=== PATIENT | male | born 1970 | race Caucasian/White ===

== ENCOUNTER 2024-10-25 14:17 | Emergency (ER) | payer MEDICAID, SELFPAY ==
[2024-10-25 14:18] VITALS: BP 120/90; PULSE 69; RESP 17; TEMP 36.6; O2SAT 98; BMI 29.7
--- NOTE | 2024-10-25 14:29 | RAD_ITS ---
EXAM: XR Left Shoulder Complete, 2 or More Views CLINICAL INDICATION: FALL TECHNIQUE: Two or more views of the left shoulder. COMPARISON: No relevant prior studies available. FINDINGS: BONES/JOINTS: Mild degenerative changes of the acromioclavicular and glenohumeral joints. No acute fracture. No dislocation. SOFT TISSUES: Soft tissue swelling. RAD/Shoulder min 2 Views IMPRESSION: Degenerative changes as above. Reading Location: [facility]
== END 2024-10-25 17:27 | disposition left against medical advice (07) ==
LOC: ED 17:29
DX: Z53.21 Procedure and treatment not carried out due to patient leaving prior to being seen by health care provider (principal); M79.89 Other specified soft tissue disorders; W19.XXXA Unspecified fall, initial encounter
CPT/HCPCS: 73030

== ENCOUNTER 2025-01-30 13:25 | Day surgery (SDC) | payer MEDICAID, SELFPAY ==
[2025-01-30] VITALS (9 sets, daily range): BP systolic 102–134; BP diastolic 72–90; PULSE 58–86; RESP 12–16; TEMP 2.2–36.4; O2SAT 93–97; BMI 27.1
--- NOTE | 2025-01-30 13:41 | EKG12_ITS ---
Test Reason : PRE-OP Blood Pressure : */* mmHG Vent. Rate : 61 BPM Atrial Rate : 61 BPM P-R Int : 132 ms QRS Dur : 86 ms QT Int : 404 ms P-R-T Axes : 10 15 32 degrees QTcB Int : 406 ms Normal sinus rhythm Normal ECG When compared with ECG of 31-Aug-2002 20:21, Questionable change in QRS axis Confirmed by BERT MON, REBECCA ([id number]), development editor ASHLEIGH FLETCHER ([id number]) on 02/04/2025 6:39:43 AM Referred By: Balwinder Segundo Confirmed By: REBECCA NOEL MD
--- NOTE | 2025-01-30 14:13 | PCM.PRE.AN2 ---
ASA Classification* ASA Classification ASA Classification: 2 Assessment & Plan Anesthesia* Anesthesia Assessment Anesthesia Assessment: Discussed sedation and/or anesthesia options, risks, benefits, and alternatives with patient/parents/legal guardian/POA. Questions invited. The patient/parents/legal guardian/POA seems to understand and agrees to proceed with anesthesia plan. Reviewed the physical assessment, medical history, allergy history and patient home medications list prior to surgery/procedure/anesthetic and documented any changes. Performed airway and anesthesia risk assessments. Anesthesia Type Anesthesia Type: General and Block History Source History Obtained from:: Patient and Chart Anesthesia Focused Assessment* Temperature: 36 F Pulse Rate: 58 Blood Pressure: 109/74 Respiratory Rate: 12 Pulse Ox: 97 Oxygen Delivery Method: Room Air Airway Assessment Mouth opens: >3 cm Mallampati Score: II Neck Range of motion (ROM): Full ROM Labs Anesthesia Preop lab: CBC WBC, (4.4-11.0) 3.1 K/mm3 L Today, 14:16 RBC, (4.6-6.2) 2.56 M/mm3 L Today, 14:16 Hgb, (13.0-16.5) 7.6 g/dL L Today, 14:16 Hct, (40-54) 23.1 % L Today, 14:16 Plt Count, (150-450) 113 K/mm3 L Today, 14:16 CHEMISTRY COAG Pre-Assessment Diagnosis/Proposed Procedure Planned Operative Procedure(s): LEFT SHOULDER ARTHROSCOPY RTC REPAIR SUBCROMIAL DECOMPRESSION ALLOGRAFT TISSUE Anesthesia History Anesthesia History - refuse laborer: Anesthesia History - refuse laborer Hx Hospitalization Yes: 10/2024 FX RIBS 01/16/25 14:18 Any Problems With Anesthesia No 01/16/25 14:18 Cholinesterase deficiency No 01/16/25 14:18 You/Your Family Experience No 01/16/25 14:18 fever (hyperthermia) with Relationship Recent Exposure to Contagious Disease Does patient have nerve No 01/16/25 14:18 stimulator Patient instructed to have device shut off --Does patient have Pacemaker or ICD? When Was Last Pacemaker Check QUESTION #4 FULL TEXT: You/Your Family Experience fever (hyperthermia) with Anesthesia Last Oral Intake Last Oral intake: Last Oral Intake NPO since Meds taken in AM with sips of water? Meds patient instructed to take am of surgery PONV PONV - refuse laborer: PONV - refuse laborer Female No 01/16/25 14:18 HX of Motion Sickness No 01/16/25 14:18 HX of N/V After Surgery No 01/16/25 14:18 Non-Smoker No 01/16/25 14:18 Duration of Surgery greater Yes 01/16/25 14:18 than 60 minutes Number of Risk Factors 1 01/16/25 14:18 PONV Score Low Risk 01/16/25 14:18 Height & Weight Height & Weight: Anesthesia: Height & Weight Height 5 ft 8 in 12/20/24 14:56 Respiratory Assessment Respiratory Assessment - refuse laborer: Respiratory Tract Infection Hx - refuse laborer Hx Respiratory Tract Infection No 01/16/25 14:18 STOP Sleep Apnea STOP Sleep Apnea - refuse laborer: STOP Sleep Apnea - refuse laborer Hx Hypertension No 01/16/25 14:18 Hx Sleep Apnea No 01/16/25 14:18 CPAP BIPAP Do you snore loudly (louder No 01/16/25 14:18 than talking or can be heard Do you often feel tired/ Yes 01/16/25 14:18 fatigued/ sleepy during daytime? Has anyone observed you stop No 01/16/25 14:18 breathing during sleep? STOP Results Negative 01/16/25 14:18 QUESTION #5 FULL TEXT : Do you snore loudly (louder than talking or can be heard through closed doors)? Tobacco Use History Tobacco Use History - refuse laborer: Tobacco Use History - refuse laborer Tobacco Use Smoking Status Current every day smoker 01/16/25 14:18 Hx Tobacco Use Yes 01/16/25 14:18 Years Smoking Packs Smoked per Day Smoking Cessation Date was within the last 15 years Hx Smoking Cessation Date Hx Smoking Cessation Counseling Hematologic Medial History Hematologic Hx - refuse laborer: Hematologic Medical Hx - buckle wire inserter Hx of Blood Transfusion No 01/16/25 14:18 Hx of Transfusion in last 3 No 01/16/25 14:18 Months Date of Last Transfusion (if within last 3 months) Ever experience any problems No 01/16/25 14:18 with transfusion(s)? Specify any problems Hx of Preganancy in last 3 N/A 01/16/25 14:18 Months Nurse Filling Out Transfusion DSCHRIBER 01/16/25 14:18 & Questions: Date: 01/16/25 01/16/25 14:18 Time: 14:20 01/16/25 14:18 Patient unable to answer at this time (ie. confused, unrespo /Reproduction History /Reproductive History - refuse laborer: /Reproductive Hx- refuse laborer Hx Now No 01/16/25 14:18 Gestational Age (in weeks): EDC: Hx Hx Para Hx Section SAB No 01/16/25 14:18 [facility] Medical History Wears glasses Anxiety Marijuana use Alcohol use History of steroid therapy High cholesterol Back pain Injury of head and neck Migraine headache History of diverticulitis Heartburn Smoker History of pain when walking Left rotator cuff tear Depression Left shoulder pain Home Medications ?Medication ?Instructions ?Recorded ?Last Taken ?Type atorvastatin 40 mg tablet 40 mg PO QDAY 12/20/24 01/30/25 History bupropion HCl 300 mg 24 hr tablet, 300 mg PO QAM 12/20/24 01/30/25 History extended release escitalopram oxalate 20 mg tablet 20 mg PO QDAY 12/20/24 01/30/25 History ibuprofen 600 mg tablet 600 mg PO TID PRN pain 12/20/24 01/30/25 History methocarbamol 500 mg tablet 750 mg PO Q4 12/20/24 01/30/25 History multivitamin-ferrous 1 tab PO QDAY 12/20/24 01/30/25 History fumarate-folic acid 18 mg-400 mcg tablet (Certavite-Antioxidant) prazosin 1 mg capsule 3 mg PO QHS 12/20/24 01/27/25 History sennosides 8.6 mg-docusate sodium 1 tab-cap PO PRN PRN constipation 12/20/24 Unknown History 50 mg tablet (Stool Softener-Laxative) rizatriptan 5 mg tablet 5 mg PO Q2H PRN migraine headache 01/16/25 Unknown History tramadol 50 mg tablet 100 mg PO 4X/DAY 01/16/25 Unknown History oxycodone 5 mg tablet 5 mg PO Q6H PRN PRN pain 01/30/25 01/29/25 History Allergy/AdvReac Type Severity Reaction Status Date / Time acetaminophen Allergy Severe Shakes Verified 01/30/25 14:25 Environmental Allergies: Allergy Severe Stuffy nose Verified 01/30/25 14:25 Uncoded (seasonal) Surgical History Hx of lymph node excision Hx of shoulder surgery History of lumbar spinal fusion Social History Smoking Status: Current every day smoker tobacco type: cigarettes alcohol intake: current alcohol intake frequency: holidays/special occasions only Addt'l Information Additional Findings: > 4 MET Review of Systems (Anesthesia) ROS Narrative System reviewed and no additional complaints, except as documented. Physical Exam Const alert and oriented x3 Neck full ROM Resp normal respiratory effort, normal air movement and clear to auscultation bilaterally Neuro oriented x3 and moves all extremities
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
[2025-01-30] MEDS: Lactated Ringers 1,000 ML 15 ML IV (14:21)
[2025-01-30 14:34] LABS: Hematocrit 23.1 % (40-54); Hemoglobin 7.6 g/dL (13.0-16.5); Mean Corp Hgb Conc 32.9 g/dL (32-36); Mean Corpuscular Volume 90.2 fL (80-94); Mean Platelet Vol. 10.1 fl (6.2-12.0); Platelet Count 113 K/mm3 (150-450); RBC Distribution Width CV 12.5 % (11.6-14.6); RBC Distribution Width SD 41.1 fl (35.1-43.9); Red Blood Count 2.56 M/mm3 (4.6-6.2); White Blood Count 3.1 K/mm3 (4.4-11.0)
[2025-01-30] MEDS: Midazolam 2 MG/2 ML Syringe IV (14:41)
[2025-01-30] MEDS: Cefazolin 1 GM/5 ML Vial 2 GM IV (15:05)
[2025-01-30] MEDS: Lidocaine 1% (5 ml sdv) 5 ML Vial 8 ML IV (15:10)
[2025-01-30] MEDS: Epinephrine (1 mg/ml) 1 MG/ML VIAL (15:29)
--- NOTE | 2025-01-30 17:29 | DCINST_ITS ---
Discharge Instructions Diet Discharge Diet: No restrictions Activity Discharge Activity: May Shower Lifting Restrictions: no lifting over one pound, pendulums and elbow rom 4x/day Additional Activity Instructions:: ok to remove sling at rest Dressing / Incision Call your doctor if your incision/area has: Continuous Slow Oozing, Sudden Increased Bleeding, Increased Pain/ Swelling, Increased Redness, Foul Smelling Discharge and Swelling at the incision site Call your doctor if you observe: Fever of 101 or Higher, Coldness, Increased Pain and Numbness or Tingling Change Dressing in: leave in place till F/U Cleanse incision/area with: Do not get Incision Wet Follow Up Care Please Follow Up With: Balwinder Segundo MD When: within 2 weeks Test Results: Test results from this visit will be discussed in further detail at your follow- up appointment, if applicable. Discharge Plan Admission Attending Provider: Balwinder Segundo Primary Care Provider: JONNA PURI Instructions Patient Instructions: After Shoulder Arthroscopy Print Language: Marshallese Discharge Orders/Prescriptions Prescriptions: New oxycodone 5 mg capsule 5 mg PO Q4H MDD 6 PRN (Reason: pain) 5 Days Qty: 30 0RF No Action ibuprofen 600 mg tablet 600 mg PO TID PRN (Reason: pain) bupropion HCl 300 mg tablet extended release 24 hr 300 mg PO QAM escitalopram oxalate 20 mg tablet 20 mg PO QDAY Certavite-Antioxidant 18-400 mg-mcg tablet 1 tab PO QDAY sennosides-docusate sodium [Stool Softener-Laxative] 8.6-50 mg tablet 1 tab-cap PO PRN PRN (Reason: constipation) methocarbamol 500 mg tablet 750 mg PO Q4 atorvastatin 40 mg tablet 40 mg PO QDAY prazosin 1 mg capsule 3 mg PO QHS tramadol 50 mg tablet 100 mg PO 4X/DAY rizatriptan 5 mg tablet 5 mg PO Q2H PRN (Reason: migraine headache) oxycodone 5 mg tablet 5 mg PO Q6H PRN PRN (Reason: pain) Referrals / Follow Up: Balwinder Segundo MD [Med Staff - Active Staff, Orthopedics] Care Physician,No Primary [Non-Staff, Medical] Disposition Disposition (needs filled in before D/C Order can be placed): Home, Self Care
--- NOTE | 2025-01-30 17:33 | OP.PCM_ITS ---
Procedures Musculoskeletal [id number]: Other Procedure See Report Operative Report (Standard) Operative Information Date of Procedure: 01/30/25 Pre-Operative Diagnosis: L shoulder RC tear Post-Operative Diagnosis: same Surgery/Procedure Performed: Left shoulder arthroscopy, subacromial decompression, rotator cuff repair, Arthrex cuff mend augmentation allograft tissue cataloging assistant: Yes Surgical Coordinator: jayy Tasks completed by first aid officer: Retracting Additional clinical research assistant?: No Type of Anesthesia: Block,Regional and General RN Documented Start/Stop Times: Operation Date: 01/30/25 14:55 Case Time Into Pre-Op 01/30/25 13:49 Anesthesia Start 01/30/25 15:05 Into Room 01/30/25 15:05 Out of Pre-Op 01/30/25 15:05 Procedure Start 01/30/25 15:29 Procedure Start Time: 15:29 Procedure Stop Time: 17:33 Select all DRAINS/GRAFTS/IMPLANTS that apply: Graft Graft details: arthrex cuff mend 2.5 cm x 3 cm Estimated Blood Loss: 50 Specimen collected: No Description of surgery: Patient brought the operating room theater. Placed supine on the table. General anesthesia induced. 2g iv ancef before procedure. Patient transferred left side up lateral decubitus beanbag positioner. Axillary roll used all bony prominences padded. SCDs on legs. Upper extremity prepped and draped in usual sterile fashion with chlorhexidine-based prep solution allowing over 3 minutes drying time prior to draping. Arm in 40 degrees of abduction 10 pounds of inline traction. Preoperative timeout performed to confirm the site patient the surgery. Began by inserting the arthroscope into the intra-articular portion of the shoulder did a full diagnostic arthroscopy. grade 1 Chondral changes on the glenoid and humeral side. Slight fraying of anterior labrum debrided. The biceps tendon had some slight synovitis no instability no tearing. I gently debrided synovitis from the rotator interval and under surface of the cuff. Used a spinal needle inside out localized portal through the rotator interval. Subscapularis no tearing no detachment. There is an obvious full-thickness supraspinatus tendon tear with retraction to the mid humeral head. I placed the scope into the subacromial space. I took arthroscopy pictures throughout. I did add full bursectomy for a moderate amount of bursitis. Did a subacromial decompression for 4 mm to flat margins. I assessed the mobility of the tear this was mobile to the foot print. I then prepared the tuberosity using shaving instruments and ablating instrument, plus arthrex power pick. Down to bleeding bed. I placed 2 all suture Arthrex RC 2.4 mm fiber tack anchors at the medial footprint just off the articular margin. I set these. I passed the simple suture from inferior to superior as well as the fiber tape suture from each anchor, with good spread. This created 6 suture limbs. I cut at the split. I then crisscrossed the sutures for 4 suture limbs into 1 each (2 total) 4.75 mm Arthrex bio composite swivel lock anchor to create a crisscrossing configuration with 4 suture anchors. This achieved good good repair of the rotator cuff to the tuberosity. I converted the knotless medial row, for 2 sututures placed horizontally across the repair site. Cut short. No need for extra stitches from the swivelock anchors, so these were removed. I then sized my graft to a 3 cm from medial to lateral by 2.5 cm from anterior to posterior graft. I kept the graft in the appropriate orientation with purple color on the superior aspect of the graft. I attached the graft to the inserted in the standard fashion the I used a passport cannula laterally. I passed the graft inside the shoulder. I placed the graft superiorly on top of the repair ensuring good coverage laterally beyond the rotator cuff repair footprint. I used the knotless fiber stitch devices in a horizontal mattress fashion. I placed 2 of these at the medial row. I then remove the stitches from the jewel flat surfacer and then placed the knotless push lock anchors anterior laterally and posterior laterally inserted these down tapped them into bone and remove the jewel flat surfacer's for good coverage and spread of the graft. Final arthroscopy pictures taken and saved onto the system. Arthroscope withdrawn. Portals closed with 3-0 Monocryl sutures skin cleaned with wet dry dressing followed application of Steri-Strips Adaptic 4 x 4 gauze ABD dressing cloth tape with an abduction pillow sling for the upper extremity. Patient will come from general anesthetic operating table taken postanesthetic. In stable condition. All sponge needle instrument counts were correct no complications plan for patient discharged home according to day surgery criteria. CPT 16435, 84604, 75179, mod 22 for the graft Surgical Findings: as above Complications Complications: No Admit VTE Documentation VTE Present on Admission: No VTE Mechan Device Prophylaxis: SCD's VTE Pharm Prophylaxis ordered?: No Reason prophylaxis not ordered: Treatment Not Indicated
--- NOTE | 2025-01-30 18:04 | PCM.POST.ANE ---
Anesthesia: Postop Eval I Current Vital Signs Temperature: 36 F Pulse Rate: 86 Blood Pressure: 130/88 Respiratory Rate: 16 Pulse Ox: 93 Oxygen Delivery Method: Nasal Cannula Oxygen Flow Rate (L/min): 2 Assessment Airway patent: Yes Spontaneous unlabored respirations: Yes Mental status: Awake and Calm nausea: No Vomiting: No Anesthesia Complication: No Fluid Hydration Crystalloid volume administer (ml): 1,200 Total IV fluid infused: 1,200 Progress Note Anesthesia document: Postop Eval 1 completed: Yes
[2025-01-30 18:21] LABS: Hematocrit 42.5 % (40-54); Hemoglobin 14.3 g/dL (13.0-16.5); Mean Corp Hgb Conc 33.6 g/dL (32-36); Mean Corpuscular Volume 89.5 fL (80-94); Mean Platelet Vol. 10.2 fl (6.2-12.0); Platelet Count 198 K/mm3 (150-450); RBC Distribution Width CV 12.5 % (11.6-14.6); RBC Distribution Width SD 41.2 fl (35.1-43.9); Red Blood Count 4.75 M/mm3 (4.6-6.2); White Blood Count 7.8 K/mm3 (4.4-11.0)
--- NOTE | 2025-01-30 18:41 | PCM.POSTANE2 ---
Anesthesia Postop Eval I Sum Postop Eval Completion status Anesthesia document: Postop Eval 1 completed: Yes Anesthesia Postop Eval I Summary Anesthesia Postop Eval I Summary: Anesthesia Postop Eval I: Assessment Summary Airway patent Yes 01/30/25 18:06 Spontaneous unlabored Yes 01/30/25 18:06 respirations Mental status Awake,Calm 01/30/25 18:06 nausea No 01/30/25 18:06 Vomiting No 01/30/25 18:06 Anesthesia Postop Eval I: Fluid Summary Crystalloid volume administer 1,200 01/30/25 18:06 (ml) Colloids volume administered ( ml) Blood Product volume administered (ml) Total IV fluid infused 1,200 01/30/25 18:06 Anesthesia Postop Eval I: Summary Notes Anesthesia Complication No 01/30/25 18:06 Anesthesia Complication Comment: Post-operative progress note Anesthesia: Postop Eval II Evaluation Mental status: Awake and Calm Pain Level: 0 nausea: No Vomiting: No Complications Anesthesia Complication: No
== END 2025-01-30 19:09 | disposition home or self-care (01) ==
LOC: SDC 13:28 → AC 13:30
PROVIDERS: Anesthesiology; Referring Provider Orthopaedic Surgery Sports Medicine; Visit Provider Orthopaedic Surgery Sports Medicine
PROC: (CPT 29805; principal; 2025-01-30 14:35)
DX: S46.012A Strain of muscle(s) and tendon(s) of the rotator cuff of left shoulder, initial encounter (principal); E78.00 Pure hypercholesterolemia, unspecified; F17.210 Nicotine dependence, cigarettes, uncomplicated; F32.A Depression, unspecified; F41.9 Anxiety disorder, unspecified; Z79.899 Other long term (current) drug therapy; W19.XXXA Unspecified fall, initial encounter
CPT/HCPCS: 29827; 29826; 29822; 64450; 01630; 85027; 93005; C1713; Q4125; J2405